=== PATIENT | female | born 1990 | race African-American/Black ===

== ENCOUNTER 2017-09-27 12:46 | Emergency (ER) | payer MEDICAID, OTHER, SELFPAY ==
[2017-09-27] MEDS ORDERED: Docusate Sodium 100 MG/10 ML UDCUP FS SCH (14:00)
== END 2017-09-27 15:33 | disposition home or self-care (01) ==
LOC: ERS 12:46
DX: H61.23 Impacted cerumen, bilateral (principal); F32.9 Major depressive disorder, single episode, unspecified; F17.210 Nicotine dependence, cigarettes, uncomplicated
CPT/HCPCS: 99282

== ENCOUNTER 2018-01-29 01:14 | Emergency (ER) | payer MEDICAID, SELFPAY | END 2018-01-29 01:58 | disposition home or self-care (01) | LOC: ERS 01:14 | DX: H60.92 Unspecified otitis externa, left ear (principal); H61.21 Impacted cerumen, right ear; F32.9 Major depressive disorder, single episode, unspecified; F17.200 Nicotine dependence, unspecified, uncomplicated | CPT/HCPCS: 99282 ==

== ENCOUNTER 2018-10-03 18:08 | Day surgery (SDC) | payer MEDICAID ==
[2018-10-03 18:44] VITALS: BMI 45.6
--- NOTE | 2018-10-03 20:40 | PRG ---
DATE OF SERVICE: 10/03/2018 OB ER ENCOUNTER PRIMARY BURRER MARKER AXLE: clinic. CHIEF COMPLAINT: Decreased movement. HISTORY OF PRESENT ILLNESS: The patient is a 27-year-old, G9, P4 female with an intrauterine at 33 weeks and 4 days, who is presenting to Labor and Delivery with reports of decreased movement over the last day or so. The patient reports that she has not been able to feel her baby move. The patient also reports that she just has established OB care with the clinic and has had one visit with them. The patient denies any recent illness, fever, fall, headache, trauma, chest pain, or shortness of breath. She does report a history of frequent heartburn. Denies nausea, vomiting, or diarrhea. Denies constipation. Denies any new rashes, hip problems, knee problems, or muscle weakness. Denies vaginal bleeding, leakage of fluid, urinary urgency or frequency. PAST MEDICAL HISTORY: Negative. PAST SURGICAL HISTORY: Tonsillectomy. PAST PSYCHIATRIC HISTORY: Depression. SOCIAL HISTORY: Uses tobacco on occasion. Denies drug or alcohol use. ALLERGIES: NO KNOWN DRUG ALLERGIES. MEDICATIONS: vitamins. OB LABS: Unavailable at the time of dictation. REVIEW OF SYSTEMS: Per HPI. PHYSICAL EXAMINATION: VITAL SIGNS: Blood pressure is 134/69, heart rate of 104, respiratory rate of 20, saturating 100% on room air, temperature 98.6. GENERAL: She appears to be in no acute distress. She is alert and oriented, cooperative and pleasant to interact with. HEAD: Normocephalic, atraumatic. LUNGS: Clear to auscultation bilaterally. HEART: Regular rate and rhythm. ABDOMEN: Soft, gravid, nontender. EXTREMITIES: Nontender, nonedematous. : Deferred. heart tracing/NST shows fetus with a baseline in the 140s with moderate long-term variability, positive 15 x 15 accelerations, no decelerations. Tocometer shows some irritability but no regular contraction pattern, is not felt by the patient. ASSESSMENT AND PLAN: The patient is a 27-year-old multiparous female with an intrauterine at 33 weeks and 4 days, who presented for decreased movement. testing demonstrates a reactive NST. Reassurance has been given to the patient. The patient has been encouraged to keep her next appointment with the clinic. Job ID: [id number]
== END 2018-10-03 19:08 | disposition home or self-care (01) ==
LOC: L&D/OP 18:08
PROVIDERS: ATTEND Obstetrics & Gynecology
DX: O36.8130 Decreased fetal movements, third trimester, not applicable or unspecified (principal); O99.333 Smoking (tobacco) complicating pregnancy, third trimester; F17.200 Nicotine dependence, unspecified, uncomplicated; O99.343 Other mental disorders complicating pregnancy, third trimester; F32.9 Major depressive disorder, single episode, unspecified; Z3A.33 33 weeks gestation of pregnancy; Z79.899 Other long term (current) drug therapy
CPT/HCPCS: 99282

== ENCOUNTER 2018-10-19 00:08 | Day surgery (SDC) | payer OTHER ==
[2018-10-19 01:04] VITALS: BMI 44.2
--- NOTE | 2018-10-19 02:32 | PDOC.FPROB ---
FMR OB H&P: HPI - History of Present Illness Chief Complaint: Contractions Indentification: 27 year old History of Present Illness: 27 year old at 35.6 wks by reported 2T elian presents with contractions that have become more frequent and intense since 4 AM yesterday morning. Patient has essentially had no PNC. She has attended one appt at [facility], but has no showed all other appointments. She states that she has transportation issues that make her visits difficult. Patient denies any vaginal bleeding or LoF. She states that she did lose her mucous plug one week ago. Additionally, patient reports N/V over the last week. She states that it has been difficult to keep anything down during that time, to include water. She has not seen anybody for the N/V and she has not taken any medications. Patient has not taken PNV during this . Patient denies shortness of breath, chest pain, palpitations, vision changes, headaches, or RUQ pain. Primary Care Physician: [facility] FMR OB H&P: Current - Care : 6 Para: [id number] Gestational age: 35.6 wks Due date: 11/17/2018 Dating Criteria: 2T calroso? 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 Denies alcohol or drug use. FMR OB H&P: Medications - Current Home Medications: Medication Instructions Recorded Confirmed Type Ondansetron [Zofran ODT] 4 mg PO Q6HR PRN #30 tab 10/19/18 Rx 21/Iron Fu/Folic Acid 1 tablet PO DAILY #30 tablet 10/19/18 Rx [ Complete Caplet] Allergies/Adverse Reactions: Allergies Allergy/AdvReac Type Severity Reaction Status Date / Time No Known Allergies Allergy Verified 10/19/18 01:05 FMR OB H&P: ROS - Review of Systems General: reports: weight/appetite/sleep changes Eyes: denies: vision changes, scotomas ENT: denies: nasal congestion, rhinorrhea, sore throat Cardiovascular: denies: chest pain, palpitation, edema Respiratory: denies: cough, congestion, shortness of breath Gastrointestinal: reports: nausea, vomiting. denies: abdominal pain, diarrhea Genitourinary (Female): reports: contractions. denies: dysuria, vaginal discharge, vaginal pain, vaginal bleeding Musculoskeletal: denies: pain, stiffness Neurologic: denies: numbness, syncope, seizures Integumentary: denies: rash, lesions Hematologic/Lymphatic: denies: prolonged or excessive bleeding Psychological: reports: depression. denies: anxiety FMR OB H&P: Vital Signs - Maternal Vital signs: BP 127/77 Pulse 104 Afebrile - Heart Tones Baseline: 130 Variability: moderate Acceleration: present Deceleration: absent Category: category 1 [place] contractions every: irregular FMR OB H&P: Physical Exam - Physical Exam General: NAD, awake, alert and oriented HEENT: MMM Neck: supple Heart: RRR, normal S1/S2 General: CTAB, no respiratory distress Abdomen: soft, gravid, non-tender Musculoskeletal: pulses present, FROM in all four extremities Neurological: no tremor, no focal deficit Skin: no rash, capillary refill <2 seconds Lymphatic: no unusual bruising or bleeding, no purpura Psychiatric: intact recent and remote memory - Pelvic Exam SVE: closed/thick/high FMR OB H&P: A/P - Problem List (1) Status: Acute Qualifiers: Weeks of gestation: 35 weeks Qualified Code(s): Z3A.35 - 35 weeks gestation of (2) Limited care Status: Acute Code(s): O09.30 - SUPRVSN OF PREG W INSUFFICIENT ANTENAT CARE, UNSP TRIMESTER (3) Tobacco abuse Status: Acute Code(s): Z72.0 - TOBACCO USE Disposition: 27 year old at 35.6 wks presents with contractions sIUP - Limited PNC - No history available for patient - Presumed d/t of 11/17/2018 by 2T elian reported by patient, making her 35.6 wks Contractions - Patient does not appear to be in active labor; closed/thick/high on initial check - Repeat check in 2 hours - PO hydrate - GC/CT, UDS to rule out other causes of contractions/irritability Limited PNC - Will obtain labs and GBS swab as patient has history of poor follow up - Patient has only attended one appt at [facility] - Will order sono to evaluate growth, placental location - NST reassuring; category I strip with accelerations - Will order BPP to assess well being - Patient has not had any labs done during this ; will order IOB labs as well as risk stratifying labs to include TSH and HgA1c - Will order GC/CT and UDS - Will order GBS swab as patient is 35.6 wks and has poor follow up Tobacco abuse - Counseled on cessation Dispo: Will obtain labs and testing. Will recheck patient in 2 hours. Discussion: Date/Time: 10/19/18227 This H&P was discussed with Dr. Rodrigues who agrees with the above documentation and plan. Signature: Jo Ann Harrell, PGY-2 Addendum - Attending - Attending Attestation Date/Time: 10/19/18711 I personally evaluated the patient and discussed the management with Dr. Harrell. I agree with the History, Examination, Assessment and Plan documented above.
[2018-10-19 03:52] LABS: #Eosinphils 0.4 thou/uL (0.0-0.7); #Lymphocytes 2.8 thou/uL (1.20-3.40); #Monocytes 0.9 thou/uL (0.11-0.59); #Neutrophils 12.3 thou/uL (1.40-6.50); %Basophils 0.1 % (0.0-1.0); %Eosinophils 2.2 % (0.0-10.0); %Monocytes 5.2 % (0.0-10.0); %Neutrophils 75.5 % (42.0-75.0); Hemoglobin 10.1 g/dL (12.0-16.0); Mean Corpuscular HGB CONC 33.1 g/dL (32.0-36.0); Mean Corpuscular Hemoglobin 25.2 pg (27.0-31.0); Mean Corpuscular Volume 76.3 fL (78.0-98.0); Mean Platelet Volume 9.8 fL (7.4-10.4); Platelet Count 226 thou/uL (130-400); RBC Distribution Width 12.9 % (11.5-14.5); Red Blood Cell (RBC) Count 4.02 mill/uL (4.20-5.40); White Blood Cell (WBC) Count 16.3 thou/uL (4.8-10.8)
[2018-10-19 03:57] LABS: Hemoglobin A1c 5.1 % (4.0-6.0)
[2018-10-19 04:13] LABS: ALT (SGPT) 9 U/L (8-55); AST (SGOT) 11 U/L (5-34); Albumin 3.5 g/dL (3.5-5.0); Alkaline Phosphatase 113 U/L (40-150); Anion Gap 15 mmol/L (10-20); BUN (Urea Nitrogen) 7 mg/dL (7.0-18.7); Bilirubin, Total Less than 0.2 mg/dL (0.2-1.2); Calc. Creatinine Clearance 274 mL/min (70-130); Calcium 9.3 mg/dL (7.8-10.44); Carbon Dioxide 19 mmol/L (22-29); Chloride 105 mmol/L (98-107); Estimated GFR-MDRD Greater than 90; Globulin 3.5 g/dL (2.4-3.5); Glucose 91 mg/dL (70-105); Potassium 3.9 mmol/L (3.5-5.1); Sodium 135 mmol/L (136-145)
[2018-10-19 04:29] LABS: HBSAB Concentration 2.47 mIU/mL; Hep B Surf AB Non-Reactive (NonReactive); Thyroid Stimulating Hormone 1.9802 uIU/mL (0.35-4.94)
--- NOTE | 2018-10-19 04:46 | PDOC.EVN ---
Event Note - Event Note Event Note: Ultrasound performed: EGA 35.6 wks EFW 2878 g NNEKA 14.2 cm BPP 8/8 Position vertex Anterior placenta Jo Ann Harrell DO PGY-2
--- NOTE | 2018-10-19 05:05 | PDOC.EVN ---
Event Note - Event Note Event Note: 5:02 on 10/19 Patient unchanged several hours after initial check; closed/thick/high. Return precautions provided. IOB labs show mild anemia. Will debt and budget counselor patient on iron rich foods. Recommend she talk to provider at next appt regarding possible supplementation. Will follow up with cultures as outpatient. Will notify PNC about recent visit. Patient requesting to follow with me at [facility]. Jo Ann Harrell, DO PGY-2
[2018-10-19 05:26] LABS: Syphilis Antibody Nonreactive (Nonreactive); Syphilis Antibody Index 0.05 S/CO (<1.00 Non-Reactive)
[2018-10-19 05:47] LABS: HBSAg Index 0.23 S/CO (0-0.99); HIV (1/2) Antibody/Antigen Non-Reactive (NonReactive); HIV 1/2 INDEX 0.08 S/CO (<1.00); Hep B Surf Ag Non-Reactive S/CO (NonReactive)
[2018-10-19 05:48] LABS: Amphetamine Not Detected (NotDetected); Barbiturates Screen Not Detected (NotDetected); Benzodiazepine Screen Not Detected (NotDetected); Cocaine Metabolite Screen Not Detected (NotDetected); Medtox Control Line Valid? VALID (VALID); Medtox Reader # READER 1; Methadone Not Detected (NotDetected); Methamphetamine Not Detected (NotDetected); Opiate Screen Not Detected (NotDetected); Oxycodone Screen Not Detected (NotDetected); Phencyclidine (PCP) Not Detected (NotDetected); THC/Cannabinoid Screen Not Detected (NotDetected); Tricyclic Screen Not Detected (NotDetected)
--- NOTE | 2018-10-19 08:24 | ULT ---
OBSTETRICAL ULTRASOUND WITH BIOPHYSICAL PROFILE: COMPARISON: None. FINDINGS: The fetus received 2 out of 2 for tone, 2 out of 2 for breathing, 2 out of 2 for mo vement, and 2 out of 2 for amniotic fluid volume for a total score of 8 out of 8. There is a single live intrauterine gestation in vertex presentation with the placenta anterior in lo cation without evidence of previa. The peak systolic flow within the umbilical artery is 55.5 cm/s with an end-diastolic flow of 28.1 cm . The systolic to diastolic ratio is 1.98. Resistive index is 0.49. There is antegrade flow seen t hroughout systole and diastole in the appropriate umbilical artery pattern. Cardiac activity is noted at 147 b.p.m. NNEKA measures 14.2 cm. The estimated weight is 2878 gm +/- 426 gm (6 pounds 6 ounces +/- 15 ounces)(64th percentile ba sed on [place]). The biparietal diameter measured 8.74 cm giving estimated gestational age of 35 weeks and 2 days (41s t percentile). The head circumference measured 31.41 cm giving estimated gestational age of 35 weeks and 2 days (10t h percentile). The abdominal circumference measured 32.88 cm giving estimated gestational age of 36 weeks and 6 days (83rd percentile). The femoral length measures 6.99 cm giving an estimated gestational age of 35 weeks and 6 days (45th percentile). The visualized head, heart, stomach, bladder, kidneys, 3-vessel cord, nose and lips were within normal limits. The spine was not well evaluated. Diaphragm was not well seen. Cord in sertion was not demonstrated. IMPRESSION: 1. Obstetrical ultrasound with single live intrauterine gestation with size and dates as above. The gestational age based on biometrics is 35 weeks and 6 days, estimated due date 11/17/2018 which corresponds to the clinical age. 2. Biophysical profile of 8 out of 8. POS: BH
--- NOTE | 2018-10-19 08:25 | ULT ---
Please see the separately dictated, concurrently performed biophysical profile obstetrical ultrasound examination for details concerning the obstetrical ultrasound. POS: BH
[2018-10-20 20:35] LABS: Chlamydia by PCR Not Detected (NotDetected); GC by PCR Not Detected (NotDetected)
== END 2018-10-19 05:15 | disposition home or self-care (01) ==
LOC: L&D/OP 00:08
PROVIDERS: ATTEND Obstetrics & Gynecology
DX: O47.03 False labor before 37 completed weeks of gestation, third trimester (principal); Z3A.35 35 weeks gestation of pregnancy; Z87.891 Personal history of nicotine dependence
CPT/HCPCS: 36415; 76816; 76819; 80053; 80306; 83036; 84443; 85025; 86706; 86762; 86780; 86850; 86900; 86901; 87077; 87081; 87340; 87389; 87491; 87591; 99285

== ENCOUNTER 2018-11-04 04:50 | Day surgery (SDC) | payer OTHER ==
[2018-11-04 05:16] VITALS: BP 123/82; TEMP 98; BMI 46.5
--- NOTE | 2018-11-04 06:27 | PDOC.LDHP ---
Labor and Delivery H&P Chief complaint: contractions HPI: Ms. Escobedo is a 27 y/o F presenting with reported contractions since 1999 that come every 2-3 mins, she denies loss of fluid, vaginal bleeding/ discharge, decreased movement, headache, visual changes. She has had minimal care, seen once at clinic and twice at the hospital where her labs were drawn and a BPP/NST was completed and reassuring. Current gestational age (weeks): 38 (.1) Due date: 11/17/18 Dating criteria: last menstrual period, second trimester ultrasound Grav: 7 Para: 2 OB History Details: elective , 1T SAB with D&C Current complications: other (scant PNC) Abnormal US findings: No Past Medical History: none reported Current medications: pre- vitamins Previous surgical history: appendectomy, cholecystectomy Allergies/Adverse Reactions: Allergies Allergy/AdvReac Type Severity Reaction Status Date / Time No Known Allergies Allergy Verified 11/04/18 05:12 Social history: tobacco use - Physical Exam Vital signs reviewed and normal: yes General: NAD, breathing through contractions Heart: RRR Lungs: CTAB Abdomen: NTTP Extremeties: no edema FHT: variability present (moderate variability, accelerations present, baseline 140) [place] contractions every: 10 - Vaginal Exam cm dilated: 1 Effacement: 0% Station: -3 - OB Labs Blood type: A RH: positive Antibody Screen: negative HIV: negative RPR: negative HEPSAg: negative 1 hour GCT: unknown GBS: positive Urine drug screen: negative Rubella: immune - Plan -: sIUP - scant care, labs/US in hospital recorded and without concern - GBS positive - recheck 1.5 hours after initial exam - if unchanged cervical exam, DC home with labor precautions, follow up at [facility] Addendum - Attending - Attending Attestation Date/Time: 11/05/18 0808 I personally evaluated the patient and discussed the management with Dr. Berumen. I agree with the History, Examination, Assessment and Plan documented above.
--- NOTE | 2018-11-04 07:19 | PDOC.EVN ---
Event Note - Event Note Event Note: 10/04/2018 at 7:15 AM No cervical change in 1.5 hours (/thick/-3). Contractions irregular q3-7 min apart. Category I strip. Plan to d/c patient home with labor precautions. Patient advised to schedule appt with PNC. She has only attended one PNC appt and states it is b/c of transportation issues. She did agree to call and schedule appt with PNC, although I did offer to call for her. Patient requesting induction today, it was explained that we do not electively induce at 38 wks, particularly with poor dating. Patient frustrated, but understood. Jo Ann Harrell, DO PGY-2 Addendum - Attending - Attending Attestation Date/Time: 11/04/18 1708 I personally evaluated the patient and discussed the management with Dr. Harrell. I agree with the History, Examination, Assessment and Plan documented above.
== END 2018-11-04 07:25 | disposition home health service (06) ==
LOC: L&D/OP 04:50
PROVIDERS: ATTEND Obstetrics & Gynecology
DX: O47.1 False labor at or after 37 completed weeks of gestation (principal); O09.33 Supervision of pregnancy with insufficient antenatal care, third trimester; O99.820 Streptococcus B carrier state complicating pregnancy; Z3A.38 38 weeks gestation of pregnancy; Z79.899 Other long term (current) drug therapy
CPT/HCPCS: 99283

== ENCOUNTER 2018-11-07 00:38 | Day surgery (SDC) | payer OTHER ==
[2018-11-07 01:08] VITALS: BMI 45.1
--- NOTE | 2018-11-07 02:25 | PDOC.FPROB ---
FMR OB H&P: HPI - History of Present Illness Chief Complaint: Decreased movement History of Present Illness: 27 yo @ 38.4 wk by LMP/3T ultrasound presents for decreased movement. Says for 3-4 hours this evening she felt no movement at all. Baby is typically very active. Denies LOF, vaginal discharge/bleeding, dysuria. Feels intermittent contractions. Is now feeling baby move some. Says lack of transport and family support have caused her limited care. Primary Care Physician: PNC - 1 visit FMR OB H&P: Current - Care : 7 Para: 4024 Gestational age: 38.4 Due date: 11/17/18 Dating Criteria: 2T ultrasound - OB Labs Blood type: A RH: positive Antibody Screen: negative HIV: negative RPR: negative HepBsAg: negative Rubella: non-immune Urine drug screen: negative A1c: 5.1 H&H: 10.1/30.6 Platelets: 226 - Additional Ultrasound Additional: Growth and BPP US on 10/19/18: BPP 8/8, anterior placenta, NNEKA 14, size= date FMR OB H&P: History - Past Medical History PMH: None - OB History OB History: elective , 1T SAB w/ D&C - Surgical History Sx History: tonsillectomy, cholecystectomy - Social History Social History: Reports tobacco use, 1/2 PPD. Denies alcohol or drug use. Limited family support and transportation. - Family History Family History: Denies FMR OB H&P: Medications - Current Home Medications: Medication Instructions Recorded Confirmed Type Ondansetron [Zofran ODT] 4 mg PO Q6HR PRN #30 tab 10/19/18 11/04/18 Rx 21/Iron Fu/Folic Acid 1 tablet PO DAILY #30 tablet 10/19/18 11/04/18 Rx [ Complete Caplet] Allergies/Adverse Reactions: Allergies Allergy/AdvReac Type Severity Reaction Status Date / Time No Known Allergies Allergy Verified 11/04/18 05:12 FMR OB H&P: ROS - Review of Systems General: denies: fever/chills, weight/appetite/sleep changes Eyes: denies: vision changes ENT: denies: nasal congestion Cardiovascular: denies: chest pain, palpitation, edema Respiratory: denies: cough, shortness of breath Gastrointestinal: denies: abdominal pain, nausea Genitourinary (Female): reports: contractions. denies: dysuria, vaginal discharge, vaginal bleeding Musculoskeletal: denies: pain Neurologic: denies: headache Integumentary: denies: lesions FMR OB H&P: Vital Signs - Maternal Vital signs: 118/71 BP - Heart Tones Baseline: 145 Variability: moderate Acceleration: present Deceleration: absent Category: category 1 [place] contractions every: irregular FMR OB H&P: Physical Exam - Physical Exam General: NAD, awake, alert and oriented HEENT: normocephalic and atraumatic, grossly normal vision, grossly normal hearing Heart: RRR, normal S1/S2, no murmurs/rubs/gallops, no edema General: CTAB, no respiratory distress Abdomen: gravid, non-tender, bowel sound present Neurological: no focal deficit Skin: good tugor, capillary refill <2 seconds Psychiatric: good judgement and insight - Pelvic Exam Vulva: normal hair distribution SVE: 1.5/thick/high FMR OB H&P: A/P - Problem List (1) Status: Acute Qualifiers: Weeks of gestation: 35 weeks Qualified Code(s): Z3A.35 - 35 weeks gestation of (2) Limited care Status: Acute Code(s): O09.30 - SUPRVSN OF PREG W INSUFFICIENT ANTENAT CARE, UNSP TRIMESTER (3) Tobacco abuse Status: Acute Code(s): Z72.0 - TOBACCO USE Discussion: Date/Time: 11/07/18224 Reported decreased movement - Cat 1 strip, reactive NST - cervical check unchanged compared to visit 3 days prior - Gave reassurance to patient. Discussed signs of labor with patient. Discharged home. Limited care - Encouraged patient to follow up at [facility]. Tobacco abuse - encourage cessation This H&P was discussed with Dr. Bermudez who agrees with the above documentation and plan. Addendum - Attending - Attending Attestation Date/Time: 11/07/18723 I personally evaluated the patient and discussed the management with Dr. Flynn I agree with the History, Examination, Assessment and Plan documented above with any addition or exceptions noted below.
== END 2018-11-07 02:56 | disposition home or self-care (01) ==
LOC: L&D/OP 00:38
PROVIDERS: ATTEND Obstetrics & Gynecology
DX: O36.8130 Decreased fetal movements, third trimester, not applicable or unspecified (principal); O99.333 Smoking (tobacco) complicating pregnancy, third trimester; F17.210 Nicotine dependence, cigarettes, uncomplicated; Z3A.38 38 weeks gestation of pregnancy; Z90.89 Acquired absence of other organs; Z90.49 Acquired absence of other specified parts of digestive tract
CPT/HCPCS: 99283

== ENCOUNTER 2018-11-11 07:19 | Inpatient (IN) | payer OTHER ==
--- NOTE | 2018-11-11 07:46 | PDOC.EVN ---
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 No VB, sparse visits at the [facility]. Good FM. Patient just arrived and is being admitted. Review of Systems: Complete ROS completed and as per HPI OB HX: SVDs in past, no CS Full H&P pending as patient still in admit process. Assessment: Full term, 6cm...active labor. GBS unknown Plan: Pain control Admit to L&D Pitocin if needed
[2018-11-11] MEDS ORDERED: NS / Oxytocin 40 units/1000ml 1,000 ML IV PRN (07:49)
[2018-11-11] MEDS ORDERED: Promethazine HCl 25 MG/ML VIAL IM PRN ×2 (07:49→08:46)
[2018-11-11] MEDS ORDERED: Ondansetron PF 4 MG/2 ML Vial IVP PRN ×2 (07:49→08:46)
[2018-11-11] MEDS ORDERED: Lidocaine 1% (PF) 30 ML VIAL SC PRN (07:49)
[2018-11-11 07:53] VITALS: BMI 46.5
--- NOTE | 2018-11-11 07:54 | PDOC.FPROB ---
FMR OB H&P: HPI - History of Present Illness Chief Complaint: Contractions Indentification: 27 yo at 39.1wks by LMP c/w second trimester US History of Present Illness: This is a 27 yo at 39.1wks by LMP c/w second trimester US who presents to L&D with a cc of contractions. She states that the contractions had been occurring off and on for a few days but began building at 0400 this AM. Pt denies LOF, vaginal bleeding, chest pain, SOB, nausea, or vomiting. She reports FM and contractions occurring ever 4-6 minutes. 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 - Surgical History Sx History: Tonsillectomy Gallbladder removal - Social History Social History: Smokes 1/2 ppd FMR OB H&P: Medications - Current Home Medications: Medication Instructions Recorded Confirmed Type Ondansetron [Zofran ODT] 4 mg PO Q6HR PRN #30 tab 10/19/18 11/04/18 Rx 21/Iron Fu/Folic Acid 1 tablet PO DAILY #30 tablet 10/19/18 11/04/18 Rx [ Complete Caplet] Allergies/Adverse Reactions: Allergies Allergy/AdvReac Type Severity Reaction Status Date / Time No Known Allergies Allergy Verified 11/04/18 05:12 FMR OB H&P: ROS - Review of Systems General: denies: fever/chills, weight/appetite/sleep changes Eyes: denies: eye pain, vision changes ENT: denies: nasal congestion, rhinorrhea Cardiovascular: denies: chest pain, palpitation, edema Respiratory: denies: cough, congestion, shortness of breath Gastrointestinal: reports: abdominal pain (mild). denies: nausea, vomiting, diarrhea, constipation Genitourinary (Female): reports: contractions, vaginal pressure. denies: dysuria, hematuria Musculoskeletal: denies: pain, stiffness, tenderness Neurologic: denies: syncope, weakness Integumentary: denies: itching, rash Hematologic/Lymphatic: denies: prolonged or excessive bleeding Psychological: denies: depression, anxiety FMR OB H&P: Vital Signs - Maternal Vital signs: BP 130/57, HR 86, RR 18 - Heart Tones Baseline: 140 Variability: moderate Acceleration: absent Deceleration: absent Category: category 1 [place] contractions every: 4-6 minutes FMR OB H&P: Physical Exam - Physical Exam General: NAD, awake, alert and oriented HEENT: normocephalic and atraumatic, PERRLA, MMM Neck: FROM, no JVD Chest: non-tender to palpation, no lesions Heart: RRR, normal S1/S2, no murmurs/rubs/gallops, pulses present Deviation from normal: trace edema General: CTAB, no respiratory distress, good air movement, no rales/rhonchi, no wheezing, no retractions Abdomen: soft, gravid, bowel sound present, no masses Musculoskeletal: normal gait and station, pulses present, FROM in all four extremities Neurological: cranial nerves II through XII intact Skin: no rash, good tugor, capillary refill <2 seconds Lymphatic: no unusual bruising or bleeding Psychiatric: intact recent and remote memory, good judgement and insight - Pelvic Exam SVE: /0 FMR OB H&P: A/P - Problem List (1) Term Current Visit: Yes Status: Acute Code(s): Z34.80 - ENCOUNTER FOR SUPRVSN OF NORMAL , UNSP TRIMESTER (2) Limited care Current Visit: No Status: Acute Code(s): O09.30 - SUPRVSN OF PREG W INSUFFICIENT ANTENAT CARE, UNSP TRIMESTER (3) Tobacco abuse Current Visit: No Status: Acute Code(s): Z72.0 - TOBACCO USE (4) GBS (group B streptococcus) infection Current Visit: Yes Status: Acute Code(s): A49.1 - STREPTOCOCCAL INFECTION, UNSPECIFIED SITE Comment: agree with above..... ddawson Disposition: This is a 27 yo at 39.1wks by LMP c/w second trimester US Active labor -Admit to L&D -LR 125ml/hr -Initial check 80/0, keven q 4-6 minutes -Cat 1 strip -Possible SROM at 0815 sIUP -Poor PNC GBS positive -Starting Penicillin prophylaxis Rubella non-immune -Will require MMR pp Discussion: Date/Time: 11/11/18 0752 This H&P was discussed with Dr. Cortes who agrees with the above documentation and plan. Signature: Wang Miller PGY-1
[2018-11-11] MEDS ORDERED: Penicillin G Potassium 5 MILL.UNITS VIAL ONE ×2 (07:58→08:00)
[2018-11-11] MEDS ORDERED: Penicillin G Potassium 5 MILL.UNITS in Sodium Chloride 0.9% 100 ML IVPB SCH (08:00)
[2018-11-11] MEDS ORDERED: Butorphanol Tartrate 1 MG/ML VIAL SLOW IVP PRN (08:03)
[2018-11-11] MEDS ORDERED: Lidocaine 1% (PF) 30 ML VIAL ONE (08:09)
[2018-11-11] MEDS ORDERED: NS / Oxytocin 40 units/1000ml 1,000 ML ONE (08:09)
[2018-11-11] MEDS ORDERED: Butorphanol Tartrate 1 MG/ML VIAL ONE (08:10)
[2018-11-11 08:23] LABS: Hemoglobin 10.6 g/dL (12.0-16.0); Mean Corpuscular HGB CONC 30.1 g/dL (32.0-36.0); Mean Corpuscular Hemoglobin 23.5 pg (27.0-31.0); Mean Corpuscular Volume 78.1 fL (78.0-98.0); Mean Platelet Volume 10.6 fL (7.4-10.4); Platelet Count 190 thou/uL (130-400); RBC Distribution Width 14.6 % (11.5-14.5); White Blood Cell (WBC) Count 15.2 thou/uL (4.8-10.8)
[2018-11-11] MEDS ORDERED: Fentanyl 4 mcg/Bup 0.1% Cadd 100 ML ONE (08:39)
[2018-11-11] MEDS ORDERED: Lidocaine 1.5%/Epinephrine 1:200,000 5 ML AMPUL IJ ONE (08:40)
[2018-11-11] MEDS ORDERED: diphenhydrAMINE 50 MG/ML VIAL IVP PRN (08:46)
[2018-11-11] MEDS ORDERED: Lactated Ringer's 500 ML IV PRN (08:46)
[2018-11-11] MEDS ORDERED: Eucerin (Mineral Oil/Petrolatum,White) 30 gm Jar TOP PRN (08:46)
[2018-11-11] MEDS ORDERED: Naloxone HCl 0.4 mg/ml Vial IVP PRN ×2 (08:46)
[2018-11-11] MEDS ORDERED: Acetaminophen 325 MG TAB PO PRN (08:46)
[2018-11-11] MEDS ORDERED: ePHEDrine/0.9% NaCl/PF SYRINGE 50 mg/10 ml SLOW IVP PRN (08:46)
[2018-11-11] MEDS ORDERED: Communication Order-Pharmacy FS SCH (09:00)
[2018-11-11] MEDS ORDERED: Fentanyl 4 mcg/Bupivacaine 0.1% Cassette 100 ML EPIDURAL SCH (09:00)
[2018-11-11] MEDS: Lactated Ringer's 1,000 ML IV SCH ×3 (09:08→23:06)
[2018-11-11 09:09] LABS: Syphilis Antibody Nonreactive (Nonreactive); Syphilis Antibody Index 0.05 S/CO (<1.00 Non-Reactive)
[2018-11-11 09:09] LABS: HBSAg Index 0.29 S/CO (0-0.99); Hep B Surf Ag Non-Reactive S/CO (NonReactive)
[2018-11-11] MEDS ORDERED: Misoprostol 200 MCG TAB ONE (09:24)
[2018-11-11] MEDS ORDERED: Bisacodyl 10 MG SUPP PR PRN (09:40)
[2018-11-11] MEDS ORDERED: Measles/Mumps/Rubella 10 MCG/0.5 ML VIAL SC ONE (09:40)
[2018-11-11] MEDS ORDERED: Milk Of Magnesia 30 ML UDCUP PO PRN (09:40)
[2018-11-11] MEDS ORDERED: Adacel (T-DAP) 0.5 ML SYRINGE IM ONE (09:40)
[2018-11-11] MEDS ORDERED: Lanolin Ointment 7 GM TUBE TOP PRN (09:40)
[2018-11-11] MEDS ORDERED: NS / Oxytocin 40 units/1000ml 1,000 ML IV SCH (09:45)
[2018-11-11] MEDS: Penicillin G 2.5 MILL.units 2.5 MILL.UNITS in Premix Bag 1 BAG IVPB SCH ×4 (12:55→23:06)
[2018-11-11] MEDS: Ibuprofen 800 MG TAB PO SCH ×2 (13:04→21:30)
[2018-11-11] MEDS: Ferrous Sulfate 325 MG TAB PO SCH (17:55)
[2018-11-11] MEDS ORDERED: Benzocaine/Menthol 20-0.5% 60 ML CAN TOP PRN (20:59)
[2018-11-11] MEDS: Docusate Calcium (SURFAK) 240 MG CAP PO SCH (21:29)
--- NOTE | 2018-11-12 05:36 | PDOC.PP ---
Post Progress Note Post Day #: 1 Subjective: Pt reports she has been doing well overnight, lochia is minimal, and pain is minimal. She states she has been eating well. She denies chest pain, SOB, headache, light headedness, or dizziness. PO intake tolerated: yes Flatus: yes Ambulation: yes Vital Signs (12 hours) Temp Pulse Resp BP Pulse Ox 11/12/18 03:38 97.6 F 98 16 118/58 L 11/12/18 00:00 98.1 F 97 16 121/65 11/11/18 20:25 97.6 F 100 18 119/71 99 Weight Weight 130.635 kg - Physical Examination General: NAD Cardiovascular: no m/r/g, RRR Respiratory: clear to auscultation bilaterally, non-labored breathing Abdominal: + bowel sounds, lochia, no distention, appropriately TTP Fundus firm & at: 4cm below umbilicus Extremities: negative homans (B) Neurological: no gross focal deficits Psychiatric: A&Ox3, normal affect Result Diagrams: 11/11/18 08:12 Additional Labs: Post Labs Blood Type A POSITIVE 11/11/18 08:19 Hep Bs Antigen Non-Reactive S/CO (NonReactive) 11/11/18 08:19 (1) Term Code(s): Z34.80 - ENCOUNTER FOR SUPRVSN OF NORMAL , UNSP TRIMESTER Status: Acute (2) Limited care Code(s): O09.30 - SUPRVSN OF PREG W INSUFFICIENT ANTENAT CARE, UNSP TRIMESTER Status: Acute (3) Tobacco abuse Code(s): Z72.0 - TOBACCO USE Status: Acute (4) GBS (group B streptococcus) infection Code(s): A49.1 - STREPTOCOCCAL INFECTION, UNSPECIFIED SITE Status: Acute - Assessment/Plan This is a 27 yo at 39.1wks by LMP c/w second trimester US who delivered at 0717 on 11/11/18 Term sIUP delivered -Routine PP care -Encourage ambulation -Encourage bottle feeding and bonding with baby Poor PNC GBS positive -Inadequately treated, monitor for pp infection Rubella non-immune -Will require MMR pp
[2018-11-12] MEDS: Ibuprofen 800 MG TAB PO SCH ×4 (06:22→21:44)
[2018-11-12] MEDS: Ferrous Sulfate 325 MG TAB PO SCH ×2 (07:35→15:28)
[2018-11-12] MEDS: Penicillin G 2.5 MILL.units 2.5 MILL.UNITS in Premix Bag 1 BAG IVPB SCH (07:36)
[2018-11-12] MEDS: Lactated Ringer's 1,000 ML IV SCH ×2 (07:36→15:28)
--- NOTE | 2018-11-12 08:00 | DN ---
DATE OF PROCEDURE: 11/11/2018 DELIVERING PHYSICIAN: Wang Miller DO, PGY-1 ASSISTING: Jo Ann Harrell DO, PGY-2 ATTENDING: Gurmeet Cortes MD PROCEDURE: Spontaneous vaginal delivery. ANESTHESIA: Epidural. QBL: 119 mL. PREOPERATIVE DIAGNOSES: 1. Term intrauterine , in labor. 2. Poor care. 3. GBS positive. 4. Rubella nonimmune. POSTOPERATIVE DIAGNOSES: 1. Term intrauterine , delivered. 2. Poor care. 3. GBS positive. 4. Rubella nonimmune. INDICATIONS: This is a 27-year-old, G6, P4-0-1-4 at 39 and 1 weeks by LMP, confirmed with a second trimester ultrasound, who presents in active labor. DELIVERY NOTE: This is a 27-year-old female, G6, P4-0-1-4 at 39 and 1, who delivered a viable male infant at 0922 hours. Following uneventful antepartum course, a vigorous male was delivered over intact perineum in the occipitoanterior position. Anterior shoulder and the remainder of the body was delivered. No nuchal cord. The head was held down. Mouth and nares were bulb suctioned. Cord was clamped after delayed cord clamping and cut. Cord blood was collected. Placenta was delivered intact in Gray presentation. Three-vessel cord was noted. Fundal massage was performed and the fundus was firm. Cervix and vagina were inspected and found to be free of lacerations. The infant went to nursery in good condition for routine care. Apgars were 9 and 9 at one and five minutes respectively. The patient tolerated the delivery well and went to routine/recovery care. Job ID: [id number]
[2018-11-12] MEDS: Docusate Calcium (SURFAK) 240 MG CAP PO SCH ×2 (09:40→21:44)
[2018-11-12] MEDS: Prenatal Vitamin 1 TAB PO SCH (09:40)
--- NOTE | 2018-11-13 05:19 | PDOC.PP ---
Post Progress Note Post Day #: 2 Subjective: Mother states she has been able to get up and walk down stairs. She denies any headache, chest pain, SOB, or abdominal pain. She reports lochia is about a period. PO intake tolerated: yes Flatus: yes Ambulation: yes Vital Signs (12 hours) Temp Pulse Resp BP Pulse Ox 11/12/18 19:51 98.1 F 102 H 20 119/72 98 Weight Weight 130.635 kg - Physical Examination General: NAD Cardiovascular: no m/r/g, RRR Respiratory: clear to auscultation bilaterally, non-labored breathing Abdominal: + bowel sounds, lochia, no distention, appropriately TTP Fundus firm & at: 4cm below umbilicus Extremities: negative homans (B) Neurological: no gross focal deficits Psychiatric: A&Ox3, normal affect Result Diagrams: 11/11/18 08:12 Additional Labs: Post Labs Blood Type A POSITIVE 11/11/18 08:19 Hep Bs Antigen Non-Reactive S/CO (NonReactive) 11/11/18 08:19 (1) Term Code(s): Z34.80 - ENCOUNTER FOR SUPRVSN OF NORMAL , UNSP TRIMESTER Status: Acute (2) Limited care Code(s): O09.30 - SUPRVSN OF PREG W INSUFFICIENT ANTENAT CARE, UNSP TRIMESTER Status: Acute (3) Tobacco abuse Code(s): Z72.0 - TOBACCO USE Status: Acute (4) GBS (group B streptococcus) infection Code(s): A49.1 - STREPTOCOCCAL INFECTION, UNSPECIFIED SITE Status: Acute Comment: agree with above..... ddawson - Assessment/Plan This is a 27 yo at 39.1wks by LMP c/w second trimester US who delivered at 0717 on 11/11/18 Term sIUP delivered -Routine PP care -Encourage ambulation -Encourage bottle feeding and bonding with baby -Nursing has concern regarding mother feeding baby, we discussed importance of feeding and the timing. Poor PNC GBS positive -Inadequately treated, monitor for pp infection Rubella non-immune -Will require MMR pp We will likely discharge pt today. Addendum - Attending - Attending Attestation Date/Time: 11/13/18717 I evaluated the patient and discussed the management with Dr. Miller. I agree with the Assessment and Plan documented above.
[2018-11-13] MEDS: Lactated Ringer's 1,000 ML IV SCH ×2 (05:25→08:30)
[2018-11-13] MEDS: Ibuprofen 800 MG TAB PO SCH (05:50)
[2018-11-13] MEDS: Ferrous Sulfate 325 MG TAB PO SCH (08:30)
[2018-11-13 08:50] VITALS: BP 112/72; TEMP 97.6
[2018-11-13] MEDS: Docusate Calcium (SURFAK) 240 MG CAP PO SCH (08:56)
[2018-11-13] MEDS: Prenatal Vitamin 1 TAB PO SCH (08:56)
== END 2018-11-13 12:20 | disposition home or self-care (01) | DRG 807 ==
LOC: L&D/OP 07:19 → L&D 08:05 → 3SW 12:05
PROVIDERS: ADMIT Obstetrics & Gynecology; ATTEND Obstetrics & Gynecology
PROC: 10E0XZZ Delivery of Products of Conception, External Approach (ICD-10-PCS; principal; 2018-11-11)
DX: O99.824 Streptococcus B carrier state complicating childbirth (principal); Z37.0 Single live birth; F17.210 Nicotine dependence, cigarettes, uncomplicated; Z3A.39 39 weeks gestation of pregnancy; Z90.49 Acquired absence of other specified parts of digestive tract; Z90.89 Acquired absence of other organs
CPT/HCPCS: 36415; 51702; 85027; 86780; 86850; 86900; 86901; 87340; 90707; 90715; 99285; J0595; J2001; J2540; J3490

== ENCOUNTER 2019-07-08 20:47 | Inpatient (IN) | payer MEDICAID, OTHER, SELFPAY ==
[2019-07-08] MEDS ORDERED: Ondansetron PF 4 MG/2 ML Vial ONE (20:53)
[2019-07-08] MEDS ORDERED: Morphine 4 MG/ML VIAL ONE ×2 (20:53→21:22)
[2019-07-08 21:17] LABS: Hemoglobin 10.8 g/dL (12.0-16.0); Mean Corpuscular HGB CONC 32.2 g/dL (32.0-36.0); Mean Corpuscular Hemoglobin 23.6 pg (27.0-31.0); Mean Corpuscular Volume 73.3 fL (78.0-98.0); Mean Platelet Volume 10.3 fL (7.4-10.4); Platelet Count 246 thou/uL (130-400); RBC Distribution Width 15.1 % (11.5-14.5); Red Blood Cell (RBC) Count 4.57 mill/uL (4.20-5.40); White Blood Cell (WBC) Count 16.2 thou/uL (4.8-10.8)
[2019-07-08 21:22] LABS: ALT (SGPT) 9 U/L (8-55); AST (SGOT) 16 U/L (5-34); Albumin 3.4 g/dL (3.5-5.0); Alkaline Phosphatase 63 U/L (40-110); Anion Gap 13 mmol/L (10-20); BUN (Urea Nitrogen) 7 mg/dL (7.0-18.7); Bilirubin, Total 0.2 mg/dL (0.2-1.2); Calc. Creatinine Clearance 0 mL/min (70-130); Calcium 9.2 mg/dL (7.8-10.44); Carbon Dioxide 18 mmol/L (22-29); Chloride 108 mmol/L (98-107); Estimated GFR-MDRD Greater than 90; Globulin 3.2 g/dL (2.4-3.5); Glucose 105 mg/dL (70-105); Lipase Less than 4 U/L (8-78); Potassium 3.8 mmol/L (3.5-5.1); Protein, Total 6.6 g/dL (6.0-8.3); Sodium 135 mmol/L (136-145)
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
--- NOTE | 2019-07-08 21:23 | CT ---
CT Cervical Spine WO Con Indication: Pain/Injury COMPARISON: None FINDINGS: Acute fracture/subluxation: None Spinal alignment: No acute malalignment. Vertebral body heights: Maintained. Cervical spine degenerative change: None of significance. IMPRESSION: No acute osseous abnormality. Notification of findings placed at 2120 hours.
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
[2019-07-08 21:32] LABS: #Eosinphils 0.3 thou/uL (0.0-0.7); #Lymphocytes 4.3 thou/uL (1.20-3.40); #Monocytes 0.7 thou/uL (0.11-0.59); #Neutrophils 10.9 thou/uL (1.40-6.50); %Basophils 0.2 % (0.0-1.0); %Eosinophils 2.1 % (0.0-10.0); %Lymphocytes 26.3 % (21.0-51.0); %Monocytes 4.4 % (0.0-10.0); %Neutrophils 67.1 % (42.0-75.0); Anisocytosis SLIGHT = 6-15 cells (100X) (0-5/hpf); MDiff Complete? YES; Microcytosis SLIGHT = 6-15 cells (100X) (0-5/hpf)
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
[2019-07-08] MEDS ORDERED: hydrALAZINE 20 MG/ML VIAL SLOW IVP PRN (21:55)
[2019-07-08] MEDS ORDERED: HumaLOG 300 UNITS/3 ML VIAL SC PRN (21:55)
[2019-07-08] MEDS ORDERED: Dextrose 50% Abboject 50 ML SYRINGE SLOW IVP PRN (21:55)
[2019-07-08] MEDS ORDERED: Ondansetron PF 4 MG/2 ML Vial IVP PRN (21:55)
[2019-07-08] MEDS ORDERED: Dextrose 5% in Water 1,000 ML IV PRN (21:55)
[2019-07-08 22:11] LABS: INR-International Normal Ratio 0.9; PTT 25.4 SEC (22.9-36.1); Prothrombin Time 12.1 SEC (12.0-14.7)
[2019-07-08] MEDS ORDERED: Acetaminophen 1,000 MG in Premix Bag 1 BAG IVPB SCH (22:15)
[2019-07-08] MEDS ORDERED: Morphine 2 MG/ML SYRINGE ONE (22:22)
[2019-07-08 22:31] LABS: Bilirubin Negative (Negative); Blood, Urine Negative (Negative); Clarity Clear (Clear); Glucose, Urine (Dipstick) Normal (Negative); Leukocyte 25 Leu/uL (Negative); Nitrite 2+ (Negative); Protein, Urine (Dipstick) 30 mg/dL (Neg-Trace); Squamous Epithelial 0-3 HPF (0-3); Urobilinogen Normal mg/dL (Less than 2)
[2019-07-08 22:36] LABS: Amphetamine Not Detected (NotDetected); Barbiturates Screen Not Detected (NotDetected); Benzodiazepine Screen Not Detected (NotDetected); Cocaine Metabolite Screen Detected (NotDetected); Medtox Control Line Valid? VALID (VALID); Medtox Reader # READER 4; Methadone Not Detected (NotDetected); Methamphetamine Not Detected (NotDetected); Opiate Screen Not Detected (NotDetected); Oxycodone Screen Not Detected (NotDetected); Phencyclidine (PCP) Not Detected (NotDetected); THC/Cannabinoid Screen Not Detected (NotDetected); Tricyclic Screen Not Detected (NotDetected)
[2019-07-08 22:43] LABS: Bacteria/HPF 1+ HPF (None Seen); RBC/HPF 0-3 HPF (0-3)
[2019-07-08] MEDS ORDERED: HYDROcodone/Acetaminophen 5/325 mg Tablet ONE (22:47)
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
[2019-07-08 23:42] VITALS: BMI 43.7
[2019-07-09] MEDS: Morphine 4 MG/ML VIAL SLOW IVP PRN ×4 (00:19→18:44)
[2019-07-09] MEDS: Sodium Chloride 0.9% 1,000 ML IV SCH ×4 (00:19→23:05)
[2019-07-09] MEDS: Acetaminophen 1,000 MG in Premix Bag 1 BAG IVPB SCH ×4 (00:20→19:03)
[2019-07-09 05:40] LABS: #Lymphocytes 2.1 thou/uL (1.20-3.40); #Monocytes 0.7 thou/uL (0.11-0.59); #Neutrophils 10.8 thou/uL (1.40-6.50); %Basophils 0.2 % (0.0-1.0); %Eosinophils 0.3 % (0.0-10.0); %Lymphocytes 15.1 % (21.0-51.0); %Neutrophils 79.3 % (42.0-75.0); Hemoglobin 8.8 g/dL (12.0-16.0); Mean Corpuscular HGB CONC 32.3 g/dL (32.0-36.0); Mean Corpuscular Hemoglobin 24.1 pg (27.0-31.0); Mean Corpuscular Volume 74.4 fL (78.0-98.0); Mean Platelet Volume 10.5 fL (7.4-10.4); Platelet Count 209 thou/uL (130-400); RBC Distribution Width 15.1 % (11.5-14.5); Red Blood Cell (RBC) Count 3.66 mill/uL (4.20-5.40); White Blood Cell (WBC) Count 13.6 thou/uL (4.8-10.8)
[2019-07-09 06:01] LABS: Anion Gap 11 mmol/L (10-20); BUN (Urea Nitrogen) 7 mg/dL (7.0-18.7); Calc. Creatinine Clearance 265 mL/min (70-130); Calcium 8.2 mg/dL (7.8-10.44); Carbon Dioxide 18 mmol/L (22-29); Chloride 109 mmol/L (98-107); Estimated GFR-MDRD Greater than 90; Glucose 119 mg/dL (70-105); Potassium 3.9 mmol/L (3.5-5.1); Sodium 134 mmol/L (136-145)
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
[2019-07-09] MEDS: Famotidine/PF 20 mg/2ml Vial SLOW IVP SCH ×2 (07:58→21:33)
[2019-07-09] MEDS: Ferrous Sulfate 325 MG TAB PO SCH ×2 (07:59→18:54)
[2019-07-09] MEDS: Polyethylene Glycol 3350 17 GM Packet PO SCH (07:59)
[2019-07-09] MEDS: Senokot S 8.6-50 MG TAB PO SCH ×2 (07:59→20:43)
[2019-07-09] MEDS: Nitrofurantoin Monohyd/M-Cryst 100 MG CAP PO SCH ×2 (07:59→20:43)
[2019-07-09] MEDS: Prenatal Vitamin 1 TAB PO SCH (07:59)
[2019-07-09] MEDS ORDERED: CEFAZOLIN 2 GM in Premix Bag 1 BAG IVPB SCH (08:00)
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
[2019-07-09] MEDS ORDERED: FLU VACC QS2019-20(6MOS UP)/PF 60 MCG/0.5 ML SYRINGE IM ONE (09:00)
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
[2019-07-09] MEDS ORDERED: Fentanyl 100 MCG/2 ML VIAL ONE ×4 (13:23→17:40)
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
--- NOTE | 2019-07-09 16:09 | RAD ---
INTRAOPERATIVE IMAGING OF THE RIGHT FEMUR: 07/09/19 HISTORY: ORIF. FINDINGS: Previously noted fracture deformities of the mid/distal femoral shaft have been treated with a latera l screw and plate fixation. There is anatomic alignment at the fracture sites. IMPRESSION: Intraoperative imaging of the right femur as above. POS: TPC
[2019-07-09] MEDS ORDERED: Ondansetron HCl/PF 4 MG/2 ML Vial IVP PRN (17:20)
[2019-07-09] MEDS ORDERED: Promethazine HCl 25 MG/ML VIAL SLOW IVP PRN (17:20)
[2019-07-09] MEDS ORDERED: Promethazine HCl 25 MG/ML VIAL IM PRN (17:20)
[2019-07-09] MEDS: CEFAZOLIN 2 GM in Premix Bag 1 BAG IVPB SCH (21:32)
[2019-07-09] MEDS: Acetaminophen 500 MG TAB PO SCH (23:01)
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
[2019-07-10] MEDS: Morphine 4 MG/ML VIAL SLOW IVP PRN ×5 (02:07→21:20)
[2019-07-10] MEDS: Sodium Chloride 0.9% 1,000 ML IV SCH ×3 (02:08→15:49)
[2019-07-10] MEDS: CEFAZOLIN 2 GM in Premix Bag 1 BAG IVPB SCH (05:15)
[2019-07-10] MEDS: Acetaminophen 500 MG TAB PO SCH (05:16)
[2019-07-10 06:55] LABS: #Eosinphils 0.3 thou/uL (0.0-0.7); #Lymphocytes 1.7 thou/uL (1.20-3.40); #Monocytes 0.6 thou/uL (0.11-0.59); #Neutrophils 9.1 thou/uL (1.40-6.50); %Basophils 0.4 % (0.0-1.0); %Eosinophils 2.6 % (0.0-10.0); %Lymphocytes 14.2 % (21.0-51.0); %Monocytes 5.2 % (0.0-10.0); %Neutrophils 77.7 % (42.0-75.0); Hemoglobin 7.7 g/dL (12.0-16.0); Mean Corpuscular HGB CONC 32.1 g/dL (32.0-36.0); Mean Corpuscular Hemoglobin 24.1 pg (27.0-31.0); Mean Corpuscular Volume 75.1 fL (78.0-98.0); Mean Platelet Volume 11.8 fL (7.4-10.4); Platelet Count 145 thou/uL (130-400); RBC Distribution Width 15.1 % (11.5-14.5); White Blood Cell (WBC) Count 11.7 thou/uL (4.8-10.8)
[2019-07-10 07:14] LABS: Anion Gap 10 mmol/L (10-20); BUN (Urea Nitrogen) Less than 4 mg/dL (7.0-18.7); Calc. Creatinine Clearance 274 mL/min (70-130); Calcium 7.8 mg/dL (7.8-10.44); Carbon Dioxide 21 mmol/L (22-29); Chloride 107 mmol/L (98-107); Estimated GFR-MDRD Greater than 90; Glucose 99 mg/dL (70-105); Magnesium 1.5 mg/dL (1.6-2.6); Phosphorus 2.9 mg/dL (2.3-4.7); Potassium 3.7 mmol/L (3.5-5.1); Sodium 134 mmol/L (136-145)
[2019-07-10] MEDS ORDERED: Magnesium Sulfate 3 GM, Potassium Phosphate 30 MMOL in Sodium Chloride 0.9% 250 ML 250 ML IVPB SCH (08:30)
[2019-07-10 09:11] LABS: Syphilis Antibody Nonreactive (Nonreactive); Syphilis Antibody Index 0.03 S/CO (<1.00 Non-Reactive)
[2019-07-10 09:12] LABS: HBSAB Concentration 0.91 mIU/mL; Hep B Surf AB Non-Reactive (NonReactive)
[2019-07-10] MEDS: Acetaminophen 325 MG TAB PO SCH ×3 (09:18→20:39)
[2019-07-10] MEDS: Famotidine 20 MG TAB PO SCH ×2 (09:18→20:36)
[2019-07-10] MEDS: Prenatal Vitamin 1 TAB PO SCH (09:18)
[2019-07-10] MEDS: Ferrous Sulfate 325 MG TAB PO SCH ×2 (09:19→16:21)
[2019-07-10] MEDS: Senokot S 8.6-50 MG TAB PO SCH ×2 (09:19→20:36)
[2019-07-10] MEDS: Polyethylene Glycol 3350 17 GM Packet PO SCH (09:19)
[2019-07-10] MEDS: Nitrofurantoin Monohyd/M-Cryst 100 MG CAP PO SCH ×2 (09:19→20:36)
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
[2019-07-10] MEDS: Acetaminophen/Codeine 30-300mg Tablet PO PRN ×2 (10:58→20:35)
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
[2019-07-10] MEDS: Ascorbic Acid 500 mg Chewable Tablet PO SCH (20:36)
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
[2019-07-11] MEDS: Acetaminophen 325 MG TAB PO SCH ×4 (02:38→20:43)
[2019-07-11] MEDS: Acetaminophen/Codeine 30-300mg Tablet PO PRN ×4 (02:38→20:43)
[2019-07-11 04:50] LABS: #Basophils 0.1 thou/uL (0.0-0.2); #Eosinphils 0.4 thou/uL (0.0-0.7); #Lymphocytes 2.2 thou/uL (1.20-3.40); #Monocytes 0.7 thou/uL (0.11-0.59); #Neutrophils 9.5 thou/uL (1.40-6.50); %Basophils 0.4 % (0.0-1.0); %Eosinophils 3.2 % (0.0-10.0); %Lymphocytes 17.2 % (21.0-51.0); %Monocytes 5.5 % (0.0-10.0); %Neutrophils 73.7 % (42.0-75.0); Hemoglobin 8.4 g/dL (12.0-16.0); Mean Corpuscular HGB CONC 32.1 g/dL (32.0-36.0); Mean Corpuscular Hemoglobin 24.8 pg (27.0-31.0); Mean Corpuscular Volume 77.2 fL (78.0-98.0); Mean Platelet Volume 10.4 fL (7.4-10.4); Platelet Count 187 thou/uL (130-400); RBC Distribution Width 15.8 % (11.5-14.5); Red Blood Cell (RBC) Count 3.37 mill/uL (4.20-5.40); White Blood Cell (WBC) Count 12.8 thou/uL (4.8-10.8)
[2019-07-11 05:10] LABS: Anion Gap 11 mmol/L (10-20); BUN (Urea Nitrogen) Less than 4 mg/dL (7.0-18.7); Calc. Creatinine Clearance 284 mL/min (70-130); Carbon Dioxide 20 mmol/L (22-29); Chloride 107 mmol/L (98-107); Estimated GFR-MDRD Greater than 90; Glucose 103 mg/dL (70-105); Magnesium 1.7 mg/dL (1.6-2.6); Phosphorus 3.1 mg/dL (2.3-4.7); Potassium 3.7 mmol/L (3.5-5.1); Sodium 134 mmol/L (136-145)
--- NOTE | 2019-07-11 06:36 | PDOC.EVN ---
Event Note - Event Note Event Note: 23 2/7 weeks. POD2 s/p ORIF of right femur. Resting VSS AF Abdomen is NT. No vaginal bleeding trisha or reported. Plan: Care per Trauma Team. Doppler FFHTs q shift. Will need to f/u at Clinic after discharge.
[2019-07-11] MEDS: Morphine 4 MG/ML VIAL SLOW IVP PRN (07:02)
[2019-07-11] MEDS ORDERED: Acetaminophen/Codeine 30-300mg Tablet PO PRN ×2 (08:28)
[2019-07-11] MEDS ORDERED: Magnesium Sulfate 3 GM, Potassium Chloride 40 MEQ in Sodium Chloride 0.9% 250 ML 250 ML IVPB SCH (08:45)
[2019-07-11] MEDS: Ascorbic Acid 500 mg Chewable Tablet PO SCH ×2 (09:17→20:43)
[2019-07-11] MEDS: Polyethylene Glycol 3350 17 GM Packet PO SCH (09:17)
[2019-07-11] MEDS: Ferrous Sulfate 325 MG TAB PO SCH ×2 (09:17→17:31)
[2019-07-11] MEDS: Nitrofurantoin Monohyd/M-Cryst 100 MG CAP PO SCH ×2 (09:17→20:43)
[2019-07-11] MEDS: Prenatal Vitamin 1 TAB PO SCH (09:17)
[2019-07-11] MEDS: Famotidine 20 MG TAB PO SCH ×2 (09:17→20:43)
[2019-07-11] MEDS: Senokot S 8.6-50 MG TAB PO SCH ×2 (09:17→20:43)
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
[2019-07-12] MEDS: Acetaminophen/Codeine 30-300mg Tablet PO PRN ×2 (02:42→08:41)
[2019-07-12] MEDS: Acetaminophen 325 MG TAB PO SCH ×4 (02:45→20:57)
[2019-07-12 04:52] LABS: #Eosinphils 0.5 thou/uL (0.0-0.7); #Monocytes 0.5 thou/uL (0.11-0.59); #Neutrophils 9.6 thou/uL (1.40-6.50); %Basophils 0.2 % (0.0-1.0); %Lymphocytes 15.9 % (21.0-51.0); %Monocytes 4.1 % (0.0-10.0); %Neutrophils 75.8 % (42.0-75.0); Hemoglobin 7.9 g/dL (12.0-16.0); Mean Corpuscular HGB CONC 33.4 g/dL (32.0-36.0); Mean Corpuscular Hemoglobin 25.2 pg (27.0-31.0); Mean Corpuscular Volume 75.4 fL (78.0-98.0); Mean Platelet Volume 10.3 fL (7.4-10.4); Platelet Count 196 thou/uL (130-400); RBC Distribution Width 15.9 % (11.5-14.5); Red Blood Cell (RBC) Count 3.15 mill/uL (4.20-5.40); White Blood Cell (WBC) Count 12.7 thou/uL (4.8-10.8)
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
[2019-07-12 08:15] LABS: PTT 32.4 SEC (22.9-36.1); Prothrombin Time 13.2 SEC (12.0-14.7)
[2019-07-12] MEDS: Prenatal Vitamin 1 TAB PO SCH (08:40)
[2019-07-12] MEDS: Polyethylene Glycol 3350 17 GM Packet PO SCH (08:40)
[2019-07-12] MEDS: Senokot S 8.6-50 MG TAB PO SCH ×2 (08:40→20:59)
[2019-07-12] MEDS: Famotidine 20 MG TAB PO SCH ×2 (08:40→20:58)
[2019-07-12] MEDS: Ferrous Sulfate 325 MG TAB PO SCH ×2 (08:41→16:26)
[2019-07-12] MEDS: Ascorbic Acid 500 mg Chewable Tablet PO SCH ×2 (08:41→20:58)
[2019-07-12] MEDS: Nitrofurantoin Monohyd/M-Cryst 100 MG CAP PO SCH ×2 (08:41→20:59)
[2019-07-12 08:45] LABS: ALT (SGPT) 7 U/L (8-55); AST (SGOT) 14 U/L (5-34); Albumin 2.6 g/dL (3.5-5.0); Alkaline Phosphatase 56 U/L (40-110); Anion Gap 12 mmol/L (10-20); BUN (Urea Nitrogen) 5 mg/dL (7.0-18.7); Bilirubin, Total 0.3 mg/dL (0.2-1.2); Calc. Creatinine Clearance 289 mL/min (70-130); Calcium 8.3 mg/dL (7.8-10.44); Carbon Dioxide 21 mmol/L (22-29); Chloride 107 mmol/L (98-107); Estimated GFR-MDRD Greater than 90; Globulin 2.8 g/dL (2.4-3.5); Glucose 82 mg/dL (70-105); Magnesium 1.6 mg/dL (1.6-2.6); Phosphorus 4.3 mg/dL (2.3-4.7); Protein, Total 5.4 g/dL (6.0-8.3); Sodium 136 mmol/L (136-145)
--- NOTE | 2019-07-12 11:21 | PRG ---
DATE OF SERVICE: 07/12/2019 SUBJECTIVE: Cydney is a 28-year-old female who is postop day #4 from a right distal femur open reduction and internal fixation. On exam, her incision is clean. No erythema. No strike through. No dressing. Saturation is noted. She is neurovascularly intact in the right lower extremity. No malrotation or shortening. IMPRESSION: Postop day #4, right distal femoral open reduction and internal fixation. PLAN: Continue current care. Medical decision making defer to and placement per Trauma. Job ID: [id number]
[2019-07-12] MEDS: HYDROcodone/Acetaminophen 5/325 mg Tablet PO PRN ×2 (12:54→17:12)
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
[2019-07-12] MEDS: Ondansetron ODT 4 MG TAB PO PRN (18:30)
[2019-07-12 20:12] LABS: Hemoglobin 8.8 g/dL (12.0-16.0); Platelet Count 228 thou/uL (130-400)
[2019-07-12] MEDS: Enoxaparin Sodium 30 MG/0.3 ML SYRINGE SC SCH (20:59)
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
[2019-07-13] MEDS: Acetaminophen 325 MG TAB PO SCH ×2 (03:13→08:04)
[2019-07-13] MEDS: HYDROcodone/Acetaminophen 5/325 mg Tablet PO PRN ×5 (03:13→20:39)
[2019-07-13 03:48] LABS: #Eosinphils 0.4 thou/uL (0.0-0.7); #Lymphocytes 2.3 thou/uL (1.20-3.40); #Monocytes 0.5 thou/uL (0.11-0.59); #Neutrophils 9.8 thou/uL (1.40-6.50); %Basophils 0.3 % (0.0-1.0); %Eosinophils 3.2 % (0.0-10.0); %Lymphocytes 17.8 % (21.0-51.0); %Neutrophils 74.7 % (42.0-75.0); Hemoglobin 8.3 g/dL (12.0-16.0); Mean Corpuscular Hemoglobin 25.1 pg (27.0-31.0); Mean Platelet Volume 10.1 fL (7.4-10.4); Platelet Count 229 thou/uL (130-400); RBC Distribution Width 16.5 % (11.5-14.5); Red Blood Cell (RBC) Count 3.31 mill/uL (4.20-5.40); White Blood Cell (WBC) Count 13.2 thou/uL (4.8-10.8)
[2019-07-13 04:08] LABS: Anion Gap 13 mmol/L (10-20); BUN (Urea Nitrogen) 7 mg/dL (7.0-18.7); Calc. Creatinine Clearance 284 mL/min (70-130); Calcium 8.7 mg/dL (7.8-10.44); Carbon Dioxide 23 mmol/L (22-29); Chloride 105 mmol/L (98-107); Estimated GFR-MDRD Greater than 90; Glucose 102 mg/dL (70-105); Magnesium 1.5 mg/dL (1.6-2.6); Phosphorus 4.3 mg/dL (2.3-4.7); Potassium 3.7 mmol/L (3.5-5.1); Sodium 137 mmol/L (136-145)
[2019-07-13] MEDS: Ascorbic Acid 500 mg Chewable Tablet PO SCH ×2 (08:02→20:41)
[2019-07-13] MEDS: Ferrous Sulfate 325 MG TAB PO SCH ×2 (08:02→16:39)
[2019-07-13] MEDS: Senokot S 8.6-50 MG TAB PO SCH ×2 (08:02→20:41)
[2019-07-13] MEDS: Prenatal Vitamin 1 TAB PO SCH (08:02)
[2019-07-13] MEDS: Famotidine 20 MG TAB PO SCH ×2 (08:02→20:41)
[2019-07-13] MEDS: Nitrofurantoin Monohyd/M-Cryst 100 MG CAP PO SCH ×2 (08:03→20:41)
[2019-07-13] MEDS: Enoxaparin Sodium 30 MG/0.3 ML SYRINGE SC SCH ×2 (08:03→20:41)
[2019-07-13] MEDS: Polyethylene Glycol 3350 17 GM Packet PO SCH (08:03)
[2019-07-13] MEDS ORDERED: Magnesium Sulfate 3 GM in Sodium Chloride 0.9% 250 ML 250 ML IVPB SCH (08:45)
[2019-07-13] MEDS: Ondansetron ODT 4 MG TAB PO PRN (09:13)
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
[2019-07-13] MEDS ORDERED: HYDROcodone/Acetaminophen 5/325 mg Tablet PO PRN (09:52)
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
[2019-07-14] MEDS: HYDROcodone/Acetaminophen 5/325 mg Tablet PO PRN ×4 (01:17→14:21)
--- NOTE | 2019-07-14 06:24 | PDOC.EVN ---
Event Note - Event Note Event Note: ObGyn protection analyst 23 weeks 5 days I was at bedside to see Ms Escobedo but she was asleep (elected not to wake her as no new details). Vitals reviewed OB past sono noted No new issues from OB standpoint...will need outpatient OBGYN care with [facility] OK to continue lovenox as ordered at 30mg po BIB prophylaxis
[2019-07-14] MEDS ORDERED: Bisacodyl 10 MG SUPP PR SCH (07:00)
[2019-07-14] MEDS: Ferrous Sulfate 325 MG TAB PO SCH (09:37)
[2019-07-14] MEDS: Nitrofurantoin Monohyd/M-Cryst 100 MG CAP PO SCH (09:37)
[2019-07-14] MEDS: Prenatal Vitamin 1 TAB PO SCH (09:38)
[2019-07-14] MEDS: Senokot S 8.6-50 MG TAB PO SCH (09:38)
[2019-07-14] MEDS: Famotidine 20 MG TAB PO SCH (09:38)
[2019-07-14] MEDS: Enoxaparin Sodium 30 MG/0.3 ML SYRINGE SC SCH (09:39)
[2019-07-14] MEDS: Ascorbic Acid 500 mg Chewable Tablet PO SCH (09:39)
[2019-07-14] MEDS: Polyethylene Glycol 3350 17 GM Packet PO SCH (09:40)
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
[2019-07-14 14:44] VITALS: TEMP 98.1
[2019-07-14 14:48] VITALS: BP 118/68
== END 2019-07-14 15:30 | disposition home or self-care (01) | DRG 817 ==
LOC: ERS 20:47 → SURG A 21:43 → L&D 23:10 → SJJU 07-09 17:35
PROVIDERS: ADMIT Surgery; ATTEND Surgery
PROC: 0QS804Z Reposition Right Femoral Shaft with Internal Fixation Device, Open Approach (ICD-10-PCS; principal; 2019-07-09)
PROC: 0QSB04Z Reposition Right Lower Femur with Internal Fixation Device, Open Approach (ICD-10-PCS; 2019-07-09)
PROC: 30233N1 Transfusion of Nonautologous Red Blood Cells into Peripheral Vein, Percutaneous Approach (ICD-10-PCS; 2019-07-10)
DX: O9A.212 Injury, poisoning and certain other consequences of external causes complicating pregnancy, second trimester (principal); Z3A.22 22 weeks gestation of pregnancy; S72.351A Displaced comminuted fracture of shaft of right femur, initial encounter for closed fracture; S72.431A Displaced fracture of medial condyle of right femur, initial encounter for closed fracture; D62 Acute posthemorrhagic anemia; F17.210 Nicotine dependence, cigarettes, uncomplicated; O99.332 Smoking (tobacco) complicating pregnancy, second trimester; O99.012 Anemia complicating pregnancy, second trimester; O99.322 Drug use complicating pregnancy, second trimester; F14.10 Cocaine abuse, uncomplicated; F12.10 Cannabis abuse, uncomplicated; O23.42 Unspecified infection of urinary tract in pregnancy, second trimester; B96.20 Unspecified Escherichia coli [E. coli] as the cause of diseases classified elsewhere; O99.212 Obesity complicating pregnancy, second trimester; E66.9 Obesity, unspecified; E83.42 Hypomagnesemia; O99.282 Endocrine, nutritional and metabolic diseases complicating pregnancy, second trimester; V48.6XXA Car passenger injured in noncollision transport accident in traffic accident, initial encounter; Z90.49 Acquired absence of other specified parts of digestive tract; Z28.21 Immunization not carried out because of patient refusal
CPT/HCPCS: 36415; 36430; 51702; 70450; 71260; 72125; 74177; 76000; 76805; 80048; 80053; 80306; 81003; 81015; 82533; 83690; 83735; 84100; 84702; 85025; 85460; 85610; 85730; 86706; 86762; 86780; 86850; 86900; 86901; 87077; 87086; 87186; 96361; 96365; 96375; 96376; C1713; C1769; G0390; J0131; J0690; J1650; J2270; J2405; J3010; J3475; J3480; J7050; L1832; P9016; Q0162; S0028

== ENCOUNTER 2019-07-27 12:42 | Day surgery (SDC) | payer MEDICAID, OTHER ==
--- NOTE | 2019-07-27 15:36 | RAD ---
XR Femur Rt 2 View STANDARD History: Fall Comparison: Radiograph June 2019 Findings: There are multiple skin yi. No acute superimposed fracture is appreciated. Continued s atisfactory appearance lateral plate-screw fixation distal femur fracture. Impression: No acute superimposed fracture.
[2019-07-27 17:58] VITALS: BP 123/58; TEMP 99.1; BMI 40.3
[2019-07-27] MEDS ORDERED: hydrALAZINE 20 MG/ML VIAL SLOW IVP PRN (19:04)
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
[2019-07-27 20:16] LABS: HIV (1/2) Antibody/Antigen Non-Reactive (NonReactive); HIV 1/2 INDEX 0.07 S/CO (<1.00)
[2019-07-28] MEDS ORDERED: FLU VACC QS2019-20(6MOS UP)/PF 60 MCG/0.5 ML SYRINGE IM ONE (09:00)
== END 2019-07-27 20:10 | disposition home or self-care (01) ==
LOC: ERS 12:42 → L&D/OP 17:05
DX: Z04.3 Encounter for examination and observation following other accident (principal); Z87.81 Personal history of (healed) traumatic fracture; Z3A.25 25 weeks gestation of pregnancy
CPT/HCPCS: 36415; 87389; 87491; 87591; 99283

== ENCOUNTER 2019-10-23 00:10 | Inpatient (IN) | payer OTHER ==
[2019-10-23 00:43] VITALS: BMI 43.2
[2019-10-23] MEDS ORDERED: hydrALAZINE 20 MG/ML VIAL SLOW IVP PRN ×3 (01:06→11:12)
[2019-10-23] MEDS ORDERED: Promethazine HCl 25 MG/ML VIAL IM PRN ×2 (03:06→05:14)
[2019-10-23] MEDS ORDERED: Ibuprofen 800 MG TAB PO PRN (03:06)
[2019-10-23] MEDS ORDERED: Meperidine HCl/PF 25 MG/ML VIAL IM/IV PRN (03:06)
[2019-10-23] MEDS ORDERED: Lidocaine 1% (PF) 30 ML VIAL SC PRN (03:06)
[2019-10-23] MEDS ORDERED: Acetaminophen/Codeine 30-300mg Tablet PO PRN ×2 (03:06)
[2019-10-23] MEDS ORDERED: Butorphanol Tartrate 1 MG/ML VIAL SLOW IVP PRN (03:06)
[2019-10-23] MEDS ORDERED: Acetaminophen 500 MG TAB PO PRN (03:06)
[2019-10-23] MEDS ORDERED: Zolpidem Tartrate 5 MG TAB PO PRN (03:06)
[2019-10-23] MEDS ORDERED: Ondansetron PF 4 MG/2 ML Vial IVP PRN ×2 (03:06→05:14)
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
[2019-10-23] MEDS ORDERED: Lactated Ringer's 1,000 ML IV SCH ×2 (03:15)
[2019-10-23] MEDS ORDERED: Penicillin G Potassium 5 MILL.UNITS in Sodium Chloride 0.9% 100 ML IVPB SCH (03:15)
[2019-10-23] MEDS ORDERED: Penicillin G Potassium 5 MILL.UNITS VIAL ONE (03:29)
[2019-10-23 03:40] LABS: Hemoglobin 10.4 g/dL (12.0-16.0); Mean Corpuscular HGB CONC 31.8 g/dL (32.0-36.0); Mean Corpuscular Hemoglobin 23.2 pg (27.0-31.0); Mean Corpuscular Volume 72.9 fL (78.0-98.0); Mean Platelet Volume 10.7 fL (7.4-10.4); Platelet Count 276 thou/uL (130-400); RBC Distribution Width 15.7 % (11.5-14.5); White Blood Cell (WBC) Count 16.4 thou/uL (4.8-10.8)
[2019-10-23] MEDS ORDERED: Fentanyl 4 mcg/Bup 0.1% Cadd 100 ML ONE (03:56)
[2019-10-23 04:23] LABS: HBSAg Index 0.19 S/CO (0-0.99); Hep B Surf Ag Non-Reactive S/CO (NonReactive); Syphilis Antibody Nonreactive (Nonreactive); Syphilis Antibody Index 0.07 S/CO (<1.00 Non-Reactive)
[2019-10-23] MEDS ORDERED: Acetaminophen 325 MG TAB PO PRN (05:14)
[2019-10-23] MEDS ORDERED: Lactated Ringer's 500 ML IV PRN (05:14)
[2019-10-23] MEDS ORDERED: Naloxone HCl 0.4 mg/ml Vial IVP PRN ×2 (05:14)
[2019-10-23] MEDS ORDERED: ePHEDrine/0.9% NaCl/PF SYRINGE 50 mg/10 ml SLOW IVP PRN (05:14)
[2019-10-23] MEDS ORDERED: diphenhydrAMINE 50 MG/ML VIAL IVP PRN (05:14)
[2019-10-23] MEDS ORDERED: Communication Order-Pharmacy FS SCH (05:15)
[2019-10-23] MEDS ORDERED: Fentanyl 4 mcg/Bupivacaine 0.1% Cassette 100 ML EPIDURAL SCH (05:15)
[2019-10-23 06:31] LABS: Medtox Reader # READER 4
[2019-10-23 06:32] LABS: Amphetamine Not Detected (NotDetected); Barbiturates Screen Detected (NotDetected); Benzodiazepine Screen Not Detected (NotDetected); Cocaine Metabolite Screen Not Detected (NotDetected); Medtox Control Line Valid? VALID (VALID); Methadone Not Detected (NotDetected); Methamphetamine Not Detected (NotDetected); Opiate Screen Not Detected (NotDetected); Oxycodone Screen Not Detected (NotDetected); Phencyclidine (PCP) Not Detected (NotDetected); THC/Cannabinoid Screen Not Detected (NotDetected); Tricyclic Screen Not Detected (NotDetected)
[2019-10-23] MEDS ORDERED: NS w/ Oxytocin 10 units 500 ML ONE (06:41)
--- NOTE | 2019-10-23 06:49 | PDOC.EVN ---
Event Note - Event Note Event Note: Comfortable with epidural. SVE by me 5cm/40%, vtx ballotable. FHTs stable. UCs have spaced out to q 5-7 mins after epidural. Plan: Start pitocin.
[2019-10-23] MEDS: Penicillin G 2.5 MILL.units 2.5 MILL.UNITS in Premix Bag 1 BAG IVPB SCH ×2 (07:39→12:05)
[2019-10-23] MEDS: NS / Oxytocin 40 units/1000ml 1,000 ML IV PRN ×2 (09:58→10:40)
[2019-10-23] MEDS ORDERED: NS / Oxytocin 40 units/1000ml 1,000 ML IV SCH (11:12)
[2019-10-23] MEDS ORDERED: Bisacodyl 10 MG SUPP PR PRN (11:12)
[2019-10-23] MEDS ORDERED: Adacel (T-DAP) 0.5 ML SYRINGE IM ONE (11:12)
[2019-10-23] MEDS ORDERED: Milk Of Magnesia 30 ML UDCUP PO PRN (11:12)
[2019-10-23] MEDS ORDERED: Lidocaine 2% MPF 10 ML AMP (For Epidural Use) ONE (14:18)
[2019-10-23] MEDS ORDERED: Ketorolac Tromethamine 30 MG/ML VIAL IVP SCH (14:30)
[2019-10-23] MEDS: Ferrous Sulfate 325 MG TAB PO SCH (15:27)
[2019-10-23] MEDS ORDERED: Sodium Chloride 0.9% 10 ML ONE ×2 (16:05→21:00)
[2019-10-23] MEDS: HYDROcodone/Acetaminophen 5/325 mg Tablet PO PRN (18:02)
[2019-10-23] MEDS: Ketorolac Tromethamine 30 MG/ML VIAL IVP SCH ×2 (20:33→21:15)
[2019-10-23] MEDS ORDERED: FLU VACC QS2019-20(6MOS UP)/PF 60 MCG/0.5 ML SYRINGE IM ONE (21:00)
[2019-10-23] MEDS: Docusate Calcium (SURFAK) 240 MG CAP PO SCH (21:18)
[2019-10-24] MEDS: HYDROcodone/Acetaminophen 5/325 mg Tablet PO PRN ×4 (00:58→22:59)
[2019-10-24] MEDS ORDERED: Sodium Chloride 0.9% 10 ML ONE ×2 (03:58→12:41)
[2019-10-24] MEDS: Ketorolac Tromethamine 30 MG/ML VIAL IVP SCH ×2 (04:04→12:45)
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
[2019-10-24] MEDS: Ferrous Sulfate 325 MG TAB PO SCH ×2 (08:41→16:44)
--- NOTE | 2019-10-24 11:33 | DN ---
DATE OF PROCEDURE: 10/23/2019 The patient is a 28-year-old female with no care, who presented at 38 weeks and 1 day and had a baby on 10/23/2019 at 9:20 a.m. by an uncomplicated term spontaneous vaginal delivery at 38 weeks and 1 day. was male. Weight was 2428 g. Apgars were 9 and 9. There were no lacerations. Quantitative blood loss was [address] Bermudez is the delivering physician. The placenta delivered spontaneously followed by Pitocin infusion. Mother and baby are stable in the immediate . Counts are correct. Condition, stable to recovery room, and complications none. Job ID: [id number]
[2019-10-24] MEDS: Docusate Calcium (SURFAK) 240 MG CAP PO SCH ×2 (23:01→23:02)
[2019-10-25] MEDS: HYDROcodone/Acetaminophen 5/325 mg Tablet PO PRN ×2 (03:32→14:32)
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
[2019-10-25 08:11] LABS: Hemoglobin 8.3 g/dL (12.0-16.0); Mean Corpuscular HGB CONC 31.8 g/dL (32.0-36.0); Mean Corpuscular Hemoglobin 23.6 pg (27.0-31.0); Mean Platelet Volume 10.1 fL (7.4-10.4); Platelet Count 232 thou/uL (130-400); RBC Distribution Width 15.7 % (11.5-14.5); White Blood Cell (WBC) Count 12.3 thou/uL (4.8-10.8)
[2019-10-25] MEDS: Ferrous Sulfate 325 MG TAB PO SCH (09:32)
[2019-10-25] MEDS: Docusate Calcium (SURFAK) 240 MG CAP PO SCH (09:32)
[2019-10-25 10:06] VITALS: BP 117/56; TEMP 98.4
[2019-10-25] MEDS ORDERED: Measles/Mumps/Rubella 10 MCG/0.5 ML VIAL SC ONE (16:00)
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
== END 2019-10-25 18:30 | disposition home or self-care (01) | DRG 807 ==
LOC: L&D/OP 00:10 → L&D 03:07 → 3SW 12:04
PROVIDERS: ADMIT Obstetrics & Gynecology; ATTEND Obstetrics & Gynecology
PROC: 10E0XZZ Delivery of Products of Conception, External Approach (ICD-10-PCS; principal; 2019-10-23)
PROC: 3E033VJ Introduction of Other Hormone into Peripheral Vein, Percutaneous Approach (ICD-10-PCS; 2019-10-23)
DX: O99.323 Drug use complicating pregnancy, third trimester (principal); Z37.0 Single live birth; Z3A.38 38 weeks gestation of pregnancy; F14.90 Cocaine use, unspecified, uncomplicated
CPT/HCPCS: 36415; 51702; 80306; 85027; 86780; 86850; 86900; 86901; 87340; 90707; 99285; J1885; J2001; J2540; J2590

== ENCOUNTER 2024-07-31 14:34 | Emergency (ER) | payer OTHER ==
[2024-07-31] MEDS ORDERED: Ketorolac Tromethamine 10 MG TAB PO SCH (16:45)
== END 2024-07-31 16:51 | disposition home or self-care (01) ==
LOC: ERS 14:34
DX: M79.604 Pain in right leg (principal); F17.200 Nicotine dependence, unspecified, uncomplicated
CPT/HCPCS: 72170; 99283